=== PATIENT | female | born 1990 | race Caucasian/White ===

== ENCOUNTER 2025-03-10 12:31 | Emergency (ER) | payer MEDICAID ==
[~2025-03-10] VITALS: Ht 165.1 cm; Wt 49.9 kg
[2025-03-10 12:38] VITALS: O2SAT 100
[2025-03-10] MEDS ORDERED: FLUORESCEIN SODIUM 1MG/STRIP LEFTEYE ONE (15:00)
[2025-03-10] MEDS ORDERED: TETRACAINE 0.5% OPHTH DROPS 4ML BOTHEYE ONE (15:00)
[2025-03-10] MEDS: IBUPROFEN 600MG TABLET PO ONE (15:51)
[2025-03-10] MEDS ORDERED: CIPR2.5D20 LEFTEYE (16:42)
[2025-03-10] MEDS ORDERED: BRIM2.5D OP (16:42)
[2025-03-10 16:51] VITALS: BP 132/79; PULSE 72; RESP 17; TEMP 37.1; O2SAT 100
== END 2025-03-10 16:52 | disposition home or self-care (01) ==
LOC: ER 12:31
DX: H57.12 Ocular pain, left eye (principal); Z79.899 Other long term (current) drug therapy
CPT/HCPCS: 99283; Z7610; A4606